=== PATIENT | male | born 1965 | race Caucasian/White ===

== ENCOUNTER 2018-11-27 08:02 | Outpatient (CLI) | payer OTHER, SELFPAY ==
[2018-11-27 08:37] LABS: Hemoglobin A1C 5.8 % (4.5-6.2)
[2018-11-27 09:41] LABS: ALT 37 U/L (12-78); AST 20 U/L (15-37); Albumin 3.9 g/dL (3.4-5.0); Alkaline Phosphatase 88 U/L (46-116); Anion Gap 6.5 mmol/L (3-11); BUN 10 mg/dL (7-18); Bilirubin, Total 0.4 mg/dL (0.2-1.0); CO2 29.5 mmol/L (21.0-32.0); CREATININE 0.87 mg/dL (0.70-1.30); Calcium 8.9 mg/dL (8.5-10.1); Chloride 103 mmol/L (98-107); Cholesterol 221 mg/dL (50-200); Glucose 107 mg/dL (70-100); HDL Cholesterol 43 mg/dL (40-60); LDL CHOLESTEROL 136 mg/dL (<100); Potassium 4.3 mmol/L (3.5-5.1); Sodium 139 mmol/L (136-145); Total Protein 7.7 g/dL (6.4-8.2); Triglyceride 265 mg/dL (30-150)
[2018-11-28 11:31] LABS: PSA, Screening 1.2 ng/ml (0-3.5)
== END 2018-11-27 08:22 ==
PROVIDERS: PCP Nurse Practitioner Family; Visit Provider Nurse Practitioner Family
DX: Z00.00 Encounter for general adult medical examination without abnormal findings (principal); Z13.1 Encounter for screening for diabetes mellitus; Z13.220 Encounter for screening for lipoid disorders; I10 Essential (primary) hypertension
CPT/HCPCS: 36415; 80053; 80061; 83721; 84153; 83036

== ENCOUNTER 2020-06-18 09:35 | Outpatient (REF) | payer BC, SELFPAY ==
[2020-06-18 20:05] LABS: HCT 48.6 % (40.0-50.0); MCH 31.1 pg (27.0-33.0); MCHC 32.9 % (32.0-36.0); MCV 94.4 fL (80-95); MPV 10.8 fL (8.0-11.0); Platelet Count 262 10^3/uL (130-400); RBC 5.15 10^6/uL (4.36-5.78); RDW 13.2 % (11.8-14.1); RDW-SD 45.5 fL; WBC 6.82 10^3/uL (4.4-10.8)
[2020-06-18 20:25] LABS: ALT 46 U/L (16-63); AST 34 U/L (15-37); Albumin 4.2 g/dL (3.4-5.0); Alkaline Phosphatase 88 U/L (46-116); Anion Gap 8.3 mmol/L (3-11); BUN 10 mg/dL (7-18); Bilirubin, Total 0.4 mg/dL (0.2-1.0); CO2 26.7 mmol/L (21.0-32.0); Chloride 104 mmol/L (98-107); Cholesterol 180 mg/dL (<200); Glucose 119 mg/dL (74-106); HDL Cholesterol 36 mg/dL (40-60); Potassium 4.5 mmol/L (3.5-5.1); Sodium 139 mmol/L (136-145); Total Protein 7.7 g/dL (6.4-8.2); Triglyceride 451 mg/dL (<150)
[2020-06-18 22:47] LABS: LDL CHOLESTEROL 86 mg/dL (<100)
== END 2020-06-18 09:55 ==
LOC: NCHCN 09:35
PROVIDERS: PCP Nurse Practitioner Family; Visit Provider Nurse Practitioner Family
DX: Z00.00 Encounter for general adult medical examination without abnormal findings (principal); Z13.1 Encounter for screening for diabetes mellitus; Z13.220 Encounter for screening for lipoid disorders
CPT/HCPCS: 80053; 80061; 83721; 85027

== ENCOUNTER 2021-11-09 14:50 | Outpatient (REF) | payer BC, SELFPAY ==
[2021-11-09 20:01] LABS: Hemoglobin A1C 5.6 % (<5.7)
[2021-11-09 20:06] LABS: ALT 33 U/L (16-63); AST 22 U/L (15-37); Albumin 3.7 g/dL (3.4-5.0); Alkaline Phosphatase 98 U/L (46-116); Anion Gap 10.7 mmol/L (3-11); BUN 9 mg/dL (7-18); Bilirubin, Total 0.3 mg/dL (0.2-1.0); CO2 24.3 mmol/L (21.0-32.0); CREATININE 0.7 mg/dL (0.70-1.30); Calcium 8.8 mg/dL (8.5-10.1); Calculated LDL 72 mg/dL (<100); Chloride 105 mmol/L (98-107); Cholesterol 156 mg/dL (<200); Glucose 106 mg/dL (74-106); HDL Cholesterol 49 mg/dL (40-60); Potassium 4.5 mmol/L (3.5-5.1); Sodium 140 mmol/L (136-145); Total Protein 7.3 g/dL (6.4-8.2); Triglyceride 175 mg/dL (<150)
[2021-11-10 18:33] LABS: PSA, Screening 1.4 ng/mL (0.0-3.5)
== END 2021-11-09 14:51 | disposition home or self-care (01) ==
LOC: NCHCN 14:50
PROVIDERS: PCP Nurse Practitioner Family; Visit Provider Physician Assistant
DX: I10 Essential (primary) hypertension (principal); E78.5 Hyperlipidemia, unspecified; R73.03 Prediabetes; Z12.5 Encounter for screening for malignant neoplasm of prostate
CPT/HCPCS: 80053; 80061; 84153; 83036

== ENCOUNTER 2023-01-05 17:26 | Outpatient (REF) | payer BC, SELFPAY ==
[2023-01-05 17:01] LABS: HCT 45.6 % (40.0-50.0); HGB 15.3 g/dL (13.5-17.5); MCH 30.7 pg (27.0-33.0); MCHC 33.6 % (32.0-36.0); MCV 92 fL (80-95); MPV 10.5 fL (8.0-11.0); Platelet Count 254 10^3/uL (130-400); RBC 4.98 10^6/uL (4.36-5.78); RDW 12.8 % (11.8-14.1); RDW-SD 43.1 fL; WBC 5.57 10^3/uL (4.4-10.8)
[2023-01-05 17:29] LABS: ALT 33 U/L (16-63); AST 20 U/L (15-37); Albumin 3.8 g/dL (3.4-5.0); Alkaline Phosphatase 101 U/L (46-116); BUN 11 mg/dL (7-18); Bilirubin, Total 0.5 mg/dL (0.2-1.0); CREATININE 0.9 mg/dL (0.70-1.30); Calcium 8.9 mg/dL (8.5-10.1); Calculated LDL 81 mg/dL (<100); Chloride 104 mmol/L (98-107); Cholesterol 165 mg/dL (<200); Glucose 133 mg/dL (74-106); HDL Cholesterol 42 mg/dL (40-60); Potassium 4.3 mmol/L (3.5-5.1); Sodium 139 mmol/L (136-145); Total Protein 7.2 g/dL (6.4-8.2); Triglyceride 210 mg/dL (<150)
[2023-01-05 17:42] LABS: Hemoglobin A1C 6.1 % (<5.7)
[2023-01-08 11:05] LABS: PSA, Screening 1.2 ng/mL (<=3.5)
== END 2023-01-05 17:27 | disposition home or self-care (01) ==
LOC: NCHCN 17:26
PROVIDERS: PCP Nurse Practitioner Family; Visit Provider Physician Assistant
DX: K21.9 Gastro-esophageal reflux disease without esophagitis (principal); E78.5 Hyperlipidemia, unspecified; R73.03 Prediabetes; Z12.5 Encounter for screening for malignant neoplasm of prostate
CPT/HCPCS: 80053; 80061; 84153; 85027; 83036

== ENCOUNTER 2023-12-18 20:30 | Outpatient (REF) | payer BC, SELFPAY ==
[2023-12-18 15:33] LABS: ALT 32 U/L (16-63); AST 17 U/L (15-37); Albumin 3.7 g/dL (3.4-5.0); Alkaline Phosphatase 85 U/L (46-116); BUN 10 mg/dL (7-18); Bilirubin, Total 0.5 mg/dL (0.2-1.0); CREATININE 0.9 mg/dL (0.70-1.30); Calcium 8.8 mg/dL (8.5-10.1); Calculated LDL 68 mg/dL (<100); Chloride 102 mmol/L (98-107); Cholesterol 157 mg/dL (<200); Estimated GFR 98.38 (mL/min/1.73m2); Glucose 143 mg/dL (74-106); HDL Cholesterol 47 mg/dL (40-60); Potassium 4.4 mmol/L (3.5-5.1); Sodium 138 mmol/L (136-145); Triglyceride 214 mg/dL (<150)
[2023-12-18 15:43] LABS: Hemoglobin A1C 6.2 % (<5.7)
[2023-12-18 22:01] LABS: PSA, Screening 1.9 ng/mL (<=3.5)
== END 2023-12-18 20:31 | disposition home or self-care (01) ==
LOC: NCHCN 20:30
PROVIDERS: PCP Nurse Practitioner Family; Referring Provider Physician Assistant; Visit Provider Physician Assistant
DX: I10 Essential (primary) hypertension (principal); E78.5 Hyperlipidemia, unspecified; R73.03 Prediabetes; Z12.5 Encounter for screening for malignant neoplasm of prostate
CPT/HCPCS: 80053; 80061; 84153; 83036

== ENCOUNTER 2024-12-17 17:19 | Emergency (ER) | payer BC, SELFPAY ==
[2024-12-17] VITALS (16 sets, daily range): BP systolic 122–166; BP diastolic 76–97; PULSE 98–113; RESP 15–30; TEMP 36.8–37.1; O2SAT 93–98
--- NOTE | 2024-12-17 17:15 | RT.EKG_ITS ---
APPROVED REPORT Exam: Resting ECG Reason for Exam: Chest pain Patient Location: E HR:115 bpm ECG Measurements Heart Rate 115 AXIS [place] 148 P 87 QRSd 85 QRS 96 QT 304 T 70 QTc 421 Conclusion Sinus tachycardia, rate 115 No interval abnormalities 1mm elevation aVR ST depression II, III, aVF, limited by baseline artifact No STEMI No priors
--- NOTE | 2024-12-17 17:30 | RT.EKG_ITS ---
APPROVED REPORT Exam: Resting ECG Reason for Exam: Chest pain Patient Location: E HR:108 bpm ECG Measurements Heart Rate 108 AXIS [place] 151 P 54 QRSd 88 QRS 64 QT 325 T 34 QTc 436 Conclusion Sinus tachycardia, rate 108 No interval abnromalities No STEMI aVR 1 mm elevation Compared to priors, baseline artifact improved
[2024-12-17] MEDS: Aspirin 81 MG CHEW 324 MG CH (17:54)
[2024-12-17 17:57] LABS: Abs Immature Grans 0.04 10^3/uL (0.0-0.06); Absolute Basophil Count 0.02 10^3/uL (0.0-0.2); Absolute Eosinophil Count 0.01 10^3/uL (0.0-0.7); Absolute Lymphocyte Count 0.26 10^3/uL (1.2-3.4); Absolute Monocyte Count 0.27 10^3/uL (0.1-0.8); Absolute Neutrophil Count 7.72 10^3/uL (1.2-6.7); Basophils % 0.2 %; Eosinophils % 0.1 %; HCT 49.2 % (40.0-50.0); HGB 16.7 g/dL (13.5-17.5); Immature Grans % 0.5 %; Lymphocytes % 3.1 %; MCH 31.7 pg (27.0-33.0); MCHC 33.9 % (32.0-36.0); MCV 94 fL (80-95); MPV 9.6 fL (8.0-11.0); Monocytes % 3.2 %; Neutrophils % 92.9 %; Platelet Count 216 10^3/uL (130-400); RBC 5.26 10^6/uL (4.36-5.78); RDW 13.1 % (11.8-14.1); RDW-SD 45.1 fL; WBC 8.32 10^3/uL (4.4-10.8)
--- NOTE | 2024-12-17 18:00 | DI.CT_ITS ---
Exam(s) CT THORAX ABD/PEL CTA EXAM: CT THORAX ABD/PEL CTA CLINICAL HISTORY: Chest pain concern for dissection. TECHNIQUE: Imaging Protocol: Axial computed tomography images with coronal and sagittal reformatted images were created and reviewed CONTRAST MATERIAL: Intravenous: Omnipaque 350 Contrast volume:100 ml Oral: None COMPARISON: No exams were available for comparison FINDINGS: CHEST: AORTA: The diameter of the ascending thoracic aorta is prominent, measuring 4 cm. The diameter of th e aortic arch and descending thoracic aorta are normal as is the diameter of the abdominal aorta. Th ere is no evidence of aortic dissection. No evidence of perforating aortic ulcer nor intramural julianna malachi. No evidence of abdominal aortic aneurysm although there is some moderate atherosclerotic invol vement of the distal most abdominal aorta. There is no significant stenosis at the aortic bifurcatio n nor within the iliac arteries and there is no aneurysmal dilatation of the common and external latasha c arteries nor of the internal iliac arteries. The visualized common femoral arteries are unremarkab le. Proximal SFA arteries are patent. There are no central pulmonary emboli evident. LUNGS: There are no infiltrates nor pleural effusions. No ominous pulmonary nodules. No pneumothora x. No significant focal findings in the trachea and mainstem bronchi. There is no bronchiectasis.. MEDIASTINUM: There is no hilar nor mediastinal adenopathy. No subcarinal adenopathy. No supraclavicu lar nor axillary adenopathy. Visualized thyroid exhibits normal size.There is fluid and mild distens ion of the esophagus. The stomach is also moderately distended and fluid-filled. There is no hiatal hernia. CARDIAC: Heart size is normal. There is no pericardial effusion. ABDOMEN: GI: The celiac and superior mesenteric artery are patent as is the inferior mesenteric artery. There is a no significant stenosis evident in the renal arteries. Stomach is distended with fluid as is the duodenum and small bowel loops which exhibit diameters up t o 3.8 cm. Distal small bowel loops are collapsed. The colon is filled with fluid but is not collaps ed nor distended. There is extensive diverticulosis of the sigmoid as well as diverticulosis in the descending-left colon distal to the splenic flexure. The appendix appears unremarkable. LIVER: Liver is diffusely hypodense consistent with steatosis. There no discrete focal hepatic lesio ns. There are no dilated intrahepatic ducts. GALLBLADDER/BILIARY: No obvious gallbladder pathology. CBD is not dilated. PANCREAS: No evidence of pancreatic mass nor dilatation of the pancreatic duct. SPLEEN: Spleen size is normal. Benign splenules are noted. ADRENALS: There are no significant adrenal masses. KIDNEYS: No cysts evident. No calculi nor hydronephrosis. No solid renal masses. LYMPH NODES: There is no retroperitoneal nor para-aortic adenopathy. No obvious mesenteric masses. ABDOMINAL WALL: There is a fat containing left inguinal hernia. No anterior abdominal wall hernia. PELVIS: LYMPH NODES: There is no intrapelvic nor inguinal adenopathy. URINARY BLADDER: There is relatively uniform thickening of the urinary bladder wall. REPRODUCTIVE: Prostate size is mildly prominent.. Seminal vesicles unremarkable. There is no obtura tor adenopathy nor other adenopathy within the pelvis and there is no inguinal adenopathy. OSSEOUS: No significant osseous lesions. No sacroiliac joints appear unremarkable. IMPRESSION: 1. No evidence of aortic dissection, as per request. The ascending thoracic aorta is enlarged measur ing 4 cm diameter but without evidence of dissection. There is also no evidence perforated aortic ul cer nor intramural aortic hematoma. 2. The esophagus is dilated and filled fluid in this patient who has stomach and bowel loops are also fluid-filled and somewhat distended (there is no hiatal hernia). Duodenum and small bowel loops are dilated and fluid-filled up to 3.8 cm diameter. The distal small bowel loops are collapsed. Transi tion zone is in the right-side of the pelvis. However, the colon is not collapsed and indeed is also fluid-filled. Diffuse gastroenteritis pattern but cannot also exclude mid-distal small bowel obstru ction component. 3. There is extensive diverticulosis in the sigmoid, rectosigmoid, and left side of the colon but the re is no evidence of acute diverticulitis. Also no evidence of appendicitis. 4. There is relatively uniform thickening of the urinary bladder wall, possibly cystitis or under dis tension. Prostate size is mildly prominent. 5. Hepatic steatosis but no ominous focal hepatic lesions. The biliary tree is not dilated. Gallbl adder appears unremarkable Report called by myself to ER physician 12/17/2024 at 7:20 p.m. RADIATION DOSE DELIVERED: 2,449.31mGy.cm Total DLP DATA REPOSITORY: All CT scans at this facility are submitted to the National Radiology Data Registry (NRDR) Dose Index Registry (DIR) with the [employer] (A[employer]). RADIATION OPTIMIZATION: All CT scans at this facility use at least one of these dose optimization te chniques: automated exposure control; mA and/or kV adjustment per patient size (includes targeted exa ms where dose is matched to clinical indication); or iterative reconstruction.
--- NOTE | 2024-12-17 18:00 | ED.GENADUL_ITS ---
Discharge Plan Disposition Patient Disposition: Home Condition: Stable Discharge Details Clinical Impression: Gastroenteritis, Chest pain Primary Care Provider: Jj Leal ED Provider: Demi Marshall Home Meds and New Rx's Prescriptions: No Action betaxolol 10 mg tablet 10 mg PO DAILY albuterol sulfate 90 mcg/actuation HFA aerosol inhaler 2 puff inhalation Q6H PRN atorvastatin 20 mg tablet 20 mg PO DAILY celecoxib 200 mg capsule 200 mg PO DAILY omeprazole 20 MG capsule,delayed release(DR/EC) 40 mg PO DAILY fexofenadine-pseudoephedrine [Binta-D 24 Hour] 1 EACH tablet extended release 24 hr 1 tab-cap PO DAILY Discharge Instructions Instructions: Viral gastroenteritis in adults Additional Instructions: You were seen in the emergency department today for evaluation of vomiting and chest pain. In our department you had a full physical examination performed, had an EKG that showed no sign of heart attack, and had laboratory studies that did not show any elevation in your cardiac enzymes on multiple rechecks, normal electrolytes and kidney function. You had a CT scan to look at your aorta in your esophagus, and this showed no sign of abnormality in your aorta and your esophagus has not been injured by your vomiting. However, we did note quite a bit of liquid in your esophagus, stomach, and small bowel concerning for infectious gastroenteritis. There has been a stomach bug going around, and we provided you with a take-home bottle of Zofran to utilize for nausea at home to ensure that you are able to stay hydrated. Certainly if you have sudden change or worsening of your chest pain you need to return to the emergency department for reevaluation. Additionally, if you stop passing stool or go more than 24 hours without passing gas you need to return to the emergency department immediately for evaluation of bowel obstruction. Please follow-up with your primary care provider in the next few days to discuss this visit and any symptoms that change, worsen, or persist. Thank you for allowing us to be part of your care. HPI General Mode of arrival: ambulatory . Date/Time Provider Initiated Documentation: 12/17/24 17:26 . Limitations to Documentation: no limitations . Information obtained by: patient, family and old records reviewed . HPI Narrative: HPI: This is a 59-year-old male patient with a past medical history significant for hypertension, who is presenting for evaluation of chest pain and vomiting. States that around 9:00 this morning he started to have forceful vomiting, and then 90 minutes ago he had a sudden onset of chest pain in the center of his chest that sometimes radiates over to the left side. He rates his pain at a 2 out of 10 and states that it is slightly better than when it initially occurred. He did have twinges of pain throughout the day during vomiting, no blood in his vomit, but did have some shortness of breath associated with this. Is diaphoretic, has no personal cardiac history, and was in his normal state of health upon awakening. Exam: Gen: Awake and alert, appears unwell HEENT: Non-icteric sclera Neck: Supple Lungs: No apparent respiratory distress, normal respiratory effort. Lung sounds clear and equal bilaterally CV: Appears well perfused, heart with regular rhythm but tachycardic rate, strong and symmetrical distal pulses Abdomen: Non-distended, soft, nontender to palpation MSK: Moves 4 extremities without apparent limitation in ROM. No peripheral edema Skin: Visualized skin without rashes, cyanosis. Patient is noted to be slightly pale and diaphoretic. Neuro: Normal Gait, no obvious focal deficits or facial asymmetry. Speaks in full, clear sentences. Psych: Appropriate for situation. MDM: This is a 59-year-old male patient presenting for evaluation of vomiting and chest pain. My differential includes but is not limited to ACS including STEMI, NSTEMI, unstable angina, certainly considered arrhythmia, pericarditis/my ocarditis, aortic pathology. Considered pulmonary abnormalities including pneumonia, bronchitis, pleural effusion, pulmonary edema, reactive airway disease, pneumothorax. The patient is without tachycardia, hypoxia, or a pleuritic component to his pain to significantly increase my concern for pulmonary embolism. Certainly considered Boerhaave's, as well as esophagitis, peptic ulcer disease, pancreatitis. Considered musculoskeletal pathologies including costochondritis, chest wall pain. An EKG was obtained, initially in triage EKG concerning for ST segment depressions in the inferior leads, this EKG's interpretation was significantly limited by artifact and baseline wander. A repeat EKG obtained approximately 10 minutes later with less artifact does not show any evidence of ST segment depression in those leads, no STEMI. Will provide the patient with a dose of aspirin, as well as obtain laboratory studies to include CBC, CMP, magnesium, troponin, INR, and will obtain a chest x-ray. ED Course: I independently interpreted the laboratory studies, which show no significant leukocytosis, anemia, or thrombocytopenia. The chemistry panel is without evidence of electrolyte abnormality, kidney dysfunction, or liver injury. Initial troponin 8, 1 hour delta 8. Lipase is low. We ultimately elected to obtain a CT of the chest and abdomen to evaluate the aorta given the patient's ongoing pain and diaphoresis. This showed a prominent diameter of the aorta but no evidence of dissection or aneurysm, did not show any pneumomediastinum to suggest Boerhaave's, the patient does have some inflammation/thickening of the esophagus and a fluid-filled stomach and small bowel concerning for gastroenteritis or bowel obstruction. On reevaluation the patient does not have significant abdominal pain, and has passed stool and flatus today, and I am more concerned given his forceful vomiting for gastroenteritis. He was provided with a liter of IV fluids and some Zofran for symptomatic management, as well as Tylenol for some head discomfort. 13, which is not significantly elevated per our protocol to warrant ongoing checks. Most concerned for gastroenteritis and esophageal irritation as a source of his symptoms, he p.o. challenged successfully, and I did provide him with a take-home bottle of Zofran for symptomatic management. I also encouraged follow-up with his primary care provider, who may recommend initiation of cardiac stress testing in the outpatient environment for risk stratification. At this time, the patient has had a full medical evaluation and is safe for di scharge to home. They are hemodynamically stable, ambulatory, and tolerating PO. They are understanding of the follow-up plan and return precautions. They left our facility without incident. Demi Marshall MD Related Data Home Medications ?Medication ?Instructions ?Recorded ?Confirmed omeprazole 20 mg capsule,delayed 40 mg PO DAILY 06/17/14 12/17/24 release fexofenadine-pseudoephedrine ER 1 tab-cap PO DAILY 07/30/15 12/17/24 180 mg-240 mg tablet,ext.release 24 hr (Binta-D 24 Hour) albuterol sulfate 90 mcg/actuation 2 puff inhalation Q6H PRN 10/14/24 12/17/24 aerosol inhaler betaxolol 10 mg tablet 10 mg PO DAILY 10/14/24 12/17/24 atorvastatin 20 mg tablet 20 mg PO DAILY 10/15/24 12/17/24 celecoxib 200 mg capsule 200 mg PO DAILY 10/15/24 12/17/24 Allergies Allergy/AdvReac Type Severity Reaction Status Date / Time No Known Allergies Allergy Unverified 10/15/24 09:10 General Stated Complaint: Chest Pain ELADIA: 3 Course Vital Signs Vital signs: Vital Signs Temperature 36.8 C 12/17/24 17:34 Pulse 113 H 12/17/24 17:34 Respiratory Rate 20 12/17/24 17:34 Blood Pressure 144/92 H 12/17/24 17:34 Pulse Oximetry 97 12/17/24 17:34 Temperature 36.8 C 12/17/24 17:34 Pulse 107 H 12/17/24 17:50 Pulse 108 H 12/17/24 17:50 Respiratory Rate 18 12/17/24 17:50 Respiratory Effort Short of Breath 12/17/24 17:48 Respiratory Depth Normal 12/17/24 17:48 Respiratory Pattern Normal 12/17/24 17:48 Blood Pressure 143/76 H 12/17/24 17:49 Blood Pressure Mean 96 12/17/24 17:49 Blood Pressure Position Sitting 12/17/24 17:34 Pulse Oximetry 97 12/17/24 17:50 Oxygen Delivery Method Room Air 12/17/24 17:34 Oxygen Flow Rate 0 12/17/24 17:34 Comment right arm 12/17/24 17:49 Lab/Test Results Lab/Test Results: Laboratory Tests Range/Units 12/17/24 17:45 WBC (4.4-10.8) 10^3/uL 8.32 RBC (4.36-5.78) 10^6/uL 5.26 Hgb (13.5-17.5) g/dL 16.7 Hct (40.0-50.0) % 49.2 MCV (80-95) fL 94 MCH (27.0-33.0) pg 31.7 MCHC (32.0-36.0) % 33.9 RDW (11.8-14.1) % 13.1 Plt Count (130-400) 10^3/uL 216 MPV (8.0-11.0) fL 9.6 Immature Gran % % 0.5 Neutrophils % % 92.9 Lymphocytes % % 3.1 Monocytes % % 3.2 Eosinophils % % 0.1 Basophils % % 0.2 Nucleated RBC % (0.0-0.3) % 0.0 Absolute Neutrophils (1.2-6.7) 10^3/uL 7.72 H Absolute Lymphocytes (1.2-3.4) 10^3/uL 0.26 L Absolute Monocytes (0.1-0.8) 10^3/uL 0.27 Absolute Eosinophils (0.0-0.7) 10^3/uL 0.01 Absolute Basophils (0.0-0.2) 10^3/uL 0.02 Medical Decision Making Quality:SDOH Health Related Social Needs: No Data to Display PFSH All Active Problems (Updated 12/17/24 @ 21:46 by Demi Marshall MD) Chest pain (Acute) Gastroenteritis (Acute) Medical History (Updated 12/17/24 @ 21:46 by Demi Marshall MD) Pain, joint, knee, right Asthma Metabolic syndrome X Hypertension GERD (gastroesophageal reflux disease) Eosinophilic esophagitis Hyperlipidemia Obesity, Class III, BMI 40-49.9 (morbid obesity) Reactive airway disease Surgical History (Updated 10/14/24 @ 15:14 by Lucero Zaragoza RN) History of colonoscopy (~09/20/15) EGD - MAC Arthroplasty of knee Social History (Updated 10/15/24 @ 09:38 by MORIS Dee) Smoking/Tobacco Use Status: Former Tobacco Use Smoking risk assessment performed?: Yes Alcohol Intake: current Alcohol Intake frequency: a few times a week Alcohol type: beer Details: 8-10 beers/day on the weekends. Drug use: Never Substance use type: does not use Housing: house Do you feel safe at home: Yes Do you feel safe in your relationship?: Yes
[2024-12-17 18:03] LABS: INR 1.1 (0.9-1.1); Prothrombin Time 10.6 sec (9.1-11.1)
[2024-12-17 18:19] LABS: ALT 41 U/L (16-63); AST 25 U/L (15-37); Alkaline Phosphatase 103 U/L (46-116); Anion Gap 13.3 mmol/L (3-11); BUN 10 mg/dL (7-18); Bilirubin, Total 0.9 mg/dL (0.2-1.0); CO2 22.7 mmol/L (21.0-32.0); Calcium 9.1 mg/dL (8.5-10.1); Chloride 104 mmol/L (98-107); Estimated GFR 86.16 (mL/min/1.73m2); Glucose 191 mg/dL (74-106); Lipase 22 U/L (<78); Magnesium 1.6 mg/dL; Potassium 3.9 mmol/L (3.5-5.1); Sodium 140 mmol/L (136-145); Total Protein 8.2 g/dL (6.4-8.2); Troponin I 8 ng/L (<or=76)
[2024-12-17] MEDS: Omnipaque 350 MG/ML 100 ML BTL IJ (18:31)
[2024-12-17] MEDS: Normal Saline - Diluent 50 ML VIAL IJ (18:33)
[2024-12-17 19:16] LABS: Troponin I 8 ng/L (<or=76)
[2024-12-17] MEDS: Ondansetron 4 MG/2 ML VIAL IVP (19:38)
[2024-12-17] MEDS: Lactated Ringers 1,000 ML 1000 ML IV (19:38)
[2024-12-17 21:19] LABS: Troponin I 13 ng/L (<or=76)
[2024-12-17] MEDS: Acetaminophen 500 MG TAB 1000 MG PO (21:49)
[2024-12-17] MEDS: Ondansetron O.D.T. 4 MG TABEF, 3 TABS/BTL PO (21:55)
== END 2024-12-17 21:56 | disposition home or self-care (01) ==
PROVIDERS: Emergency Provider Emergency Medicine; PCP Physician Assistant
DX: R07.9 Chest pain, unspecified (principal); R11.10 Vomiting, unspecified; K52.9 Noninfective gastroenteritis and colitis, unspecified; I10 Essential (primary) hypertension; Z87.891 Personal history of nicotine dependence
CPT/HCPCS: 36415; 71275; 80053; 83690; 93005; 96374; 99285; 74174; 83735; 84484; 85025; 85610; 93010; J2405; J3490

== ENCOUNTER 2025-01-05 17:55 | Outpatient (REF) | payer BC, SELFPAY ==
[2025-01-05 21:45] LABS: HGB 14.8 g/dL (13.5-17.5); MCH 31.2 pg (27.0-33.0); MCHC 32.9 % (32.0-36.0); MCV 95 fL (80-95); MPV 10.5 fL (8.0-11.0); Platelet Count 311 10^3/uL (130-400); RBC 4.74 10^6/uL (4.36-5.78); RDW 12.8 % (11.8-14.1); RDW-SD 44.8 fL; WBC 8.22 10^3/uL (4.4-10.8)
== END 2025-01-05 17:56 | disposition home or self-care (01) ==
LOC: NCHCN 17:55
PROVIDERS: PCP Physician Assistant; Visit Provider Physician Assistant
DX: K20.0 Eosinophilic esophagitis (principal); R73.03 Prediabetes; E78.5 Hyperlipidemia, unspecified
CPT/HCPCS: 80053; 80061; 85027; 83036

== ENCOUNTER 2025-07-15 11:27 | Day surgery (SDC) | payer BC, SELFPAY ==
--- NOTE | 2025-07-14 18:24 | W.ANESPRE ---
General Info Date of Service Date Performed: 07/15/25 Height: 5 ft 11 in Weight: 140.67 kg Body Mass Index (BMI): 43.2 Surgical Procedure: Operation Date: 07/15/25 07:35 Proposed Procedure Side Surgeon p Nahomy Rodgers MD Meds Allergies and Home Medications Allergies Allergy/AdvReac Type Severity Reaction Status Date / Time No Known Allergies Allergy Verified 07/15/25 06:34 Home Medication ?Medication ?Instructions ?Recorded omeprazole 20 mg capsule,delayed 40 mg PO DAILY 06/17/14 release fexofenadine-pseudoephedrine ER 1 tab-cap PO DAILY 07/30/15 180 mg-240 mg tablet,ext.release 24 hr (Binta-D 24 Hour) albuterol sulfate 90 mcg/actuation 2 puff inhalation Q6H PRN 10/14/24 aerosol inhaler betaxolol 10 mg tablet 10 mg PO DAILY 10/14/24 atorvastatin 20 mg tablet 20 mg PO DAILY 10/15/24 celecoxib 200 mg capsule 200 mg PO DAILY 10/15/24 Current Visit Medications: Current Medications Generic Name Dose Route Start Last Admin Trade Name Freq PRN Reason Stop Dose Admin Ringer's Solution 1,000 mls @ 80 mls/hr 07/15/25 06:00 IV 07/15/25 23:59 INFUSION CESAR IV Miscellaneous Supplies 1 each 07/15/25 06:00 Iv Access IV 07/15/25 23:59 DIRECTED CESAR Sodium Chloride 0 ml 07/15/25 06:00 Normal Saline Flush 10 Ml Syr IV 07/15/25 23:59 PRN PRN Sodium Chloride 0 ml 07/15/25 06:00 Normal Saline 10 Ml Vial IJ 07/15/25 23:59 DIRECTED PRN Sterile Water 0 ml 07/15/25 06:00 Water,Injection,Sterile 10 Ml Vial IJ 07/15/25 23:59 DIRECTED PRN PFSH Active Problems Active Problems: Problem Status Onset Code Encounter for screening colonoscopy Acute Z12.11 Medical History Medical History Pain, joint, knee, right Asthma Metabolic syndrome X Hypertension GERD (gastroesophageal reflux disease) Eosinophilic esophagitis Hyperlipidemia Obesity, Class III, BMI 40-49.9 (morbid obesity) Reactive airway disease Surgical History Surgical History History of colonoscopy (~09/20/15) EGD - MAC Arthroplasty of knee Tobacco Smoking/Tobacco Use Status: Former Tobacco Use Passive smoking exposure: No Alcohol Alcohol Intake: current Alcohol intake frequency: a few times a week Alcohol type: beer Details: 8-10 beers/day on the weekends. Substance Use Substance use: Never Substance use type: does not use Vital Signs and Lab Results Vital Signs Most Recent Vital Signs in EMR: Temp Pulse Resp BP Pulse Ox 36.3 C L 67 18 131/94 H 98 07/15/25 06:39 07/15/25 06:39 07/15/25 06:39 07/15/25 06:39 07/15/25 06:39 Anesthesia Assessment and Plan Anesthesia History Personal History: No History of Anesthesia Complications Family History: No Family History of Anesthesia Complications Exercise Tolerance Exercise Tolerance: Metabolic Equivalents>4 Cardiac & Pulmonary Exam Cardiac Exam: Normal S1/S2 Heart Sounds Pulmonary Exam: Clear Bilateral Breath Sounds Implantable Cardiac Device Does patient have a Pacemaker or an ICD?: No Airway Exam Known Difficult Airway: No Mallampati Class: 3 Mouth Opening: Normal (> 3cm) Thyromental Distance: Greater than 3 cm Facial Hair: Full Ghosh Neck Range of Motion: Full ROM Neck Circumference: Normal Teeth Condition: Normal Dentition ASA Classification ASA Score: ASA 3 Emergency Case?: No NPO Status NPO Status: NPO Clears >2 hours, Solids >8 hours Anesthesia Plan Resuscitation Status: DNR Maintained Throughout Perioperative Period Anesthesia Technique: General Anesthesia Airway Planned: Natural Airway Monitors Used: Standard Monitors Preoperative Comments:: 60 yo for colo. Was supposed to be first case, delayed due chewing tobacco. Sig PMHx: HTN, asthma, GERD. Chewing tobacco. ECG: sinus tach. Previous Anes: - colo, fent/midaz, prop, natural airway, no issues.
[2025-07-15 06:39] VITALS: BP 131/94; PULSE 67; RESP 18; TEMP 36.3; O2SAT 98
[2025-07-15] MEDS: Lactated Ringers 1,000 ML 80 ML IV (11:30)
[2025-07-15 11:43] VITALS: BP 126/84; PULSE 63; RESP 16; TEMP 35.7; O2SAT 99
[2025-07-15 12:39] VITALS: BMI 43.2
[2025-07-15 13:22] VITALS: BP 133/100; PULSE 87; RESP 16; TEMP 36.3; O2SAT 98
--- NOTE | 2025-07-15 13:31 | W.PM.DSUDISC ---
Date of service: 07/15/25 Discharge Plan Disposition Patient Disposition: Home Condition: Good Discharge Details Reason For Visit: Screening colonoscopy Attending Provider: Gayatri Rodgers Primary Care Provider: Jj Leal Home Meds and New Rx's Prescriptions: Continued betaxolol 10 mg tablet 10 mg PO DAILY albuterol sulfate 90 mcg/actuation HFA aerosol inhaler 2 puff inhalation Q6H PRN atorvastatin 20 mg tablet 20 mg PO DAILY celecoxib 200 mg capsule 200 mg PO DAILY omeprazole 20 MG capsule,delayed release(DR/EC) 40 mg PO DAILY fexofenadine-pseudoephedrine [Binta-D 24 Hour] 1 EACH tablet extended release 24 hr 1 tab-cap PO DAILY Discharge Instructions Instructions: Diverticulosis Additional Instructions: Your colonoscopy went well today. You do have diverticulosis but no other findings during the colonoscopy today. You should have a repeat colonoscopy in 10 yrs. Please contact the surgery office if you have further questions or concerns. 1. If tolerated, consume a soft, low fiber diet for 1-2 days. 2[address] Do not drive, drink alcohol, operate machinery, make critical decisions, or do activities that require coordination or balance for 24 hours. 3. Because air was put into your colon during the procedure, expelling air from your rectum (passing gas or farting) is normal. 4. You may not have a bowel movement for 1-3 days because of the colonoscopy prep. This is normal. 5. Go directly to the emergency room if you notice any of the following: Develop chills (warm to touch), or if you have a thermometer and your temperature is above 101 Difficulty breathing or difficultly swallowing Persistent vomiting Severe abdominal pain, other than gas cramps Severe chest pain Black, tarry stools Any bleeding ? exceeding one tablespoon 6. Call your physician if the site where your intravenous was started becomes red, swollen, painful, and warm to touch. 7. Your physician has reviewed your pre-procedure medications. Please continue to take those medications as previously ordered. You will be given specific information/education regarding any changes to your medications before leaving. Stand Alone Forms: Anesthesia Discharge Ghazala Grullon (DSU) Activity:: Activity as Tolerated Diet:: As Tolerated Discharge Orders Discharge Orders: Discharge Order (Routine); Ordered 07/15/25 Ordered By: Gayatri Rodgers
--- NOTE | 2025-07-15 13:33 | COLE_ITS ---
Date of service: 07/15/25 Time of Service: 13:33 Colonoscopy Report Date of procedure: 07/15/25 Pre-op diagnosis general: Screening for colon cancer Post-op diagnosis procedure note: same Procedure: Colonoscopy Surgeon: Gayatri Rodgers Anesthesia Type: General:No Airway Estimated blood loss (mL): 1 Pathology: none sent Complications: None Disposition: PACU Indications: Patient is a 60 yo male who presents for a screening colonoscopy. He has no changes in bowel habits. Prep: Miralax/Dulcolax Procedure Start Time: 12:57 Procedure End Time: 13:16 Retraction Time: 13 Findings: Evidence of pandiverticulosis. Some remaining stool likely in setting of diverticulosis. Procedure Description: Informed consent was obtained. The patient was taken to the endoscopy suite and placed in the left lateral decubitus position. After adequate intravenous sedation, digital rectal exam was performed, which was normal. A colonoscope was inserted into the rectum and negotiated to the cecum. The ileocecal valve and appendiceal orifice were identified. The entire colonic mucosa was then carefully circumferentially inspected upon slow withdrawal of the scope. Other than pandiverticulosis the entire colon appeared normal. Retroflexion in the rectum was unremarkable. The patient tolerated the procedure well with no complications. Postoperatively, the patient was transferred to the recovery room in stable condition. [place] Bowel Prep [place] Bowel Prep Right Colon: 3 Left Colon: 3 (Some solid stool in rectum likely in setting of diverticulosis. ) Transverse Colon: 3 Total Score: 9
--- NOTE | 2025-07-15 13:33 | W.ANESPOSTOP ---
Postoperative Evaluation Date, Time and Location Date Performed: 07/15/25 Time Performed: 13:33 Patient Location: Day Surgery Unit Vital Signs Most Recent Imported Vital Signs: Most Recent Vital Signs Temp Pulse Resp BP Pulse Ox 35.7 C L 63 16 126/84 99 07/15/25 11:43 07/15/25 11:43 07/15/25 11:43 07/15/25 11:43 07/15/25 11:43 Pain Score Most Recent Pain Score: Most Recent Pain Score Pain Level 0 07/15/25 11:43 Assessment Mental Status: Awake (Alert & Oriented to Patient Baseline) Airway and Respiratory Function: Patent airway with normal (patient baseline) respiratory exam Cardiovascular Function: Hemodynamically Stable Hydration Status: Adequately Hydrated Nausea & Vomiting: No Nausea or Vomiting Pain: Pt. Denies Any Pain Peripheral Nerve Block: Patient did not receive a nerve block Postoperative Comments:: Discussed clear liquid from mouth during scope, the turning off prop, and why his throat may be sore due to suctioning.
[2025-07-15 13:49] VITALS: BP 119/74; PULSE 62; RESP 16; TEMP 36.2; O2SAT 96
== END 2025-07-15 13:54 | disposition home or self-care (01) ==
PROVIDERS: PCP Physician Assistant; Visit Provider Student in an Organized Health Care Education/Training Program
PROC: 0DJD8ZZ Inspection of Lower Intestinal Tract, Via Natural or Artificial Opening Endoscopic (ICD-10-PCS; CPT 45378; principal; 2025-07-15 13:15)
DX: Z12.11 Encounter for screening for malignant neoplasm of colon (principal); K57.30 Diverticulosis of large intestine without perforation or abscess without bleeding
CPT/HCPCS: 45378; J2704